=== PATIENT | female | born 2005 | race Two or more races ===

== ENCOUNTER 2025-04-14 14:39 | Emergency (ER) | payer MEDICAID, SELFPAY ==
[2025-04-14 14:40] VITALS: PULSE 112; RESP 18; O2SAT 96; BMI 17.2
[2025-04-14 14:49] VITALS: BP 106/72; PULSE 119; RESP 19; TEMP 36.4; O2SAT 96; BMI 18.7
--- NOTE | 2025-04-14 15:06 | PD.EDRME ---
Rapid Medical Screening Exam RME Arrival date/time: 04/14/25 14:39 20-year-old female with no known medical history presents to the emergency room with a chief complaint of suicidal ideation and depression. Patient states she does not have a plan for suicide but she has been having SI since her grandmother and she was forced to live with her mother. I have greeted and performed a focused initial assessment of this patient. A comprehensive ED assessment and evaluation of the patient, analysis of all test results, and completion of the medical decision making process will be conducted by additional ED providers. Chief Complaint: Depression Time Seen by Provider: 04/14/25 14:47 Vital signs: Vital Signs Temperature 97.5 F 04/14/25 14:49 Pulse Rate 119 H 04/14/25 14:49 Respiratory Rate 19 04/14/25 14:49 Blood Pressure 106/72 04/14/25 14:49 Pulse Oximetry (%) 96 04/14/25 14:49 Oxygen Delivery Method Room Air 04/14/25 14:49 Vital signs reviewed by provider: Yes
[2025-04-14 15:33] LABS: Basophils # (Auto) 0.1 Thou/mm3 (0.0-0.2); Basophils % (Auto) 1 % (0-2.5); Eosinophils % (Auto) 0 % (0-10); Immature Granulocytes % (Auto) 0 % (0-0); Immature Granulocytes Auto 0.02 Thou/mm3 (0.00-0.00); Lymphocytes # (Auto) 2.9 Thou/mm3 (1.0-4.8); Lymphocytes % (Auto) 29 % (10-50); Mean Corpuscular Hemoglobin 28.2 pg (25.0-35.0); Mean Corpuscular Volume 81 fL (80-100); Monocytes # (Auto) 0.6 Thou/mm3 (0.0-0.8); Monocytes % (Auto) 6 % (0-12); Neutrophils # (Auto) 6.3 Thou/mm3 (1.8-7.7); Neutrophils % (Auto) 64 % (37-80); Nucleated Red Blood Cell % 0 /100 WBC (0); Platelet Count 381 Thou/mm3 (140-440); RDW Standard Deviation 42.6 fL (36.4-46.3); Red Blood Count 4.97 Miln/mm3 (4.00-5.20)
[2025-04-14 15:52] LABS: Alanine Aminotransferase 15 U/L (10-49); Albumin/Globulin Ratio 1.4 (1.2-2.2); Alkaline Phosphatase 101 U/L (46-116); Anion Gap 16 (7-16); Aspartate Amino Transferase 21 U/L (0-34); BUN/Creatinine Ratio 6 Ratio (12-20); Bilirubin,Total 0.6 mg/dL (0.3-1.2); Blood Urea Nitrogen < 5 mg/dL (9-23); Calcium 9.1 mg/dL (8.3-10.6); Calcium (Corrected) 9.1 mg/dL (8.5-10.1); Carbon Dioxide 22.4 mMol/L (20.0-31.0); Chloride 105 mMol/L (98-107); Creatinine (Component) 0.8 mg/dL (0.6-1.3); Estimated Creatinine Clearance 86.8 mL/min (>60); Globulin 3.5 gm/dL (2.3-3.5); Glucose 104 mg/dL (74-106); Osmolality,Calculated 282 (275-295); Potassium 3.6 mMol/L (3.4-5.1); Sodium 143 mMol/L (136-145); Total Protein 8.5 gm/dL (5.7-8.2); eGFR > 60 See Note
--- NOTE | 2025-04-14 16:16 | EDNOTE_ITS ---
ED Psych RME/HPI General Chief Complaint: Depression Stated Complaint: FOUND BY PPD- SUICIDAL THOUGHTS, NO PLAN. Time Seen by Provider: 04/14/25 14:47 Arrival date/time: 04/14/25 14:39 RME / HPI RME / HPI Narrative: 20-year-old female with history of depression in the past currently not on medication for more than 2 years presents to the emergency room with a chief complaint of suicidal ideation and depression. Patient states she does have a plan for suicide SI since her grandmother and she was forced to live with her mother. She plan of cutting herself to hurt herself. Denies any homicidal ideation. Patient is also using alcohol and cocaine to numb herself. [place] not [place] in 5150 hold. On my initial evaluation patient is refusing to answer question and was crying. Information was gathered from her female pediatric social worker. Related Data Allergies Allergy/AdvReac Type Severity Reaction Status Date / Time No Known Allergies Allergy Verified 04/14/25 14:43 Review of Systems Review of Systems Narrative Review of Systems: Review of system reviewed and within normal limits except mentioned in HPI ED Exam Narrative Physical exam: VITAL SIGNS: Reviewed. GENERAL APPEARANCE: Alert and interactive, follows commands, no acute distress, anxious, crying, HEAD AND FACE: Non-traumatic. ENT: PERRL, pink conjunctivitis, eyelid no trauma, Mucous membrane moist. NECK: Supple, nontender, no nuchal rigidity. CHEST: No tenderness, no crepitus, no paradoxical movement, no retractions. LUNGS: Clear, well ventilated, symmetric, no rales, no wheezing, no ronchi, no stridor, good breath sounds bilaterally. HEART: Regular rate, regular rhythm, no murmur, no gallops. ABDOMEN: Soft, positive bowel sounds, nondistended, no guarding, nontender, no rebound, no masses, RECTAL: Deferred. GENITAL: Deferred. NEUROLOGICAL: Gross motor function intact sensory function intact, Appropriate for age. MUSCULOSKELETAL: low back nontender, full range of motion. EXTREMITIES: Nontender, full range of motion. SKIN: Color pink, dry, no rash, no lacerations, no abrasions, no contusions. LYMPHATICS: Deferred. Course Quality Measures none Orders Category Date Time Status In and Out Catheter Care 04/14/25 16:54 Completed Suicide precautions NOW Care 04/14/25 15:06 Active Alcohol, Blood Medical Stat Lab 04/14/25 15:20 Completed CBC Stat Lab 04/14/25 15:20 Completed CMP [Comprehensive Metabolic Panel] Stat Lab 04/14/25 15:20 Completed Drug Screen,Urine Stat Lab 04/14/25 16:50 Completed UA, C/S IF [Urinalysis, C/S if Indicated] Stat Lab 04/14/25 16:50 Completed Urine Culture Stat Lab 04/14/25 16:50 Received Vital Signs Vital signs: Vital Signs Temperature 97.5 F 04/14/25 14:49 Pulse Rate 119 H 04/14/25 14:49 Respiratory Rate 19 04/14/25 14:49 Blood Pressure 106/72 04/14/25 14:49 Pulse Oximetry (%) 96 04/14/25 14:49 Oxygen Delivery Method Room Air 04/14/25 14:49 Psych MDM Narrative MDM Narrative:: 20-year-old female with history of depression in the past currently not on medication for more than 2 years presents to the emergency room with a chief complaint of suicidal ideation and depression. Patient states she does have a plan for suicide SI since her grandmother and she was forced to live with her mother. She plan of cutting herself to hurt herself. Denies any homicidal ideation. Patient is also using alcohol and cocaine to numb herself. She was [place] up [place] the police [place] the park but not placed in 5150 hold. On my initial evaluation patient is refusing to answer question and was crying. Information was gathered from her female pediatric social worker. Patient is medically cleared for crisis intervention Patient was accepted and transferred to [facility] Patient data External records reviewed:: None Clinical information provided by:: patient Social determinants that could affect healthcare access:: mental health Patient has the following chronic illnesses:: Depression How is presenting disease/condition affected by chronic disease/condition?: exacerbated by Evaluation data The following diagnostics were reviewed and interpreted by me:: lab results Lab and/or radiology exams considered but not ordered:: None Interpretation Summary: CBC came back unremarkable CMP unremarkable urinalysis + UTI. Drug test positive for cocaine, marijuana, and alcohol level of 192 Medications / Prescriptions Medications or Prescriptions considered but not ordered:: None Medication administrations:: Keflex Consultations Consultation(s) initiated? (list below): No Diagnosis Psych Differential Diagnosis: acute psychosis and suicidal ideation Most likely diagnosis given after review of the tests above:: UTI, depression, suicidal ideation Admission Indicated Admission indicated?: indicated Admission Request Was there a request for admission?: Yes Admission Attestation Admission request attestation: Transferred to mental facility Disposition Plan Disposition Plan: Transfer Discharge Plan Plan Patient Disposition: [facility] Prescriptions/Referrals Referrals: Marian Lewis PA-C [Primary Care Provider] - In 1 week Problem List Clinical Impression: Suicidal ideation, Depression, UTI (urinary tract infection) Patient/Caregiver Discharge Instructions Print Language: Cymraes Stand Alone Forms: Gila Award Info., Patient Portal Info Letter
[2025-04-14 16:52] VITALS: BP 101/66; PULSE 77; RESP 16; TEMP 36.8; O2SAT 98
[2025-04-14 16:54] LABS: Collection Type, Urine Clean Catch
[2025-04-14 17:04] LABS: Bacteria,Urine 2+; Bilirubin,Urine Negative (Negative); Blood,Urine Trace (Negative); Color,Urine Yellow (Lt Yel-Yel); Glucose, Urine Negative (Negative); Hyaline Casts,Urine < 1 /hpf (0-1); Ketones,Urine Trace (Negative); Leukocyte Esterase,Urine Positive (Negative); Nitrite,Urine Positive (Negative); Protein,Urine Trace (Neg - Trace); RBC,Urine 2 /hpf (0-3); Specific Gravity,Urine 1.014 (1.001-1.035); Squamous Epithelial Cell,Urine 2 /hpf (0-5); Urobilinogen,Urine Negative mg/dL (0.0-1.0); WBC,Urine 73 /hpf (0-5)
[2025-04-14 17:15] LABS: Amphetamine/Methamp Scrn,U Negative (Negative); Barbiturate Screen,Urine Negative (Negative); Benzodiazepines Screen,Urine Negative (Negative); Benzoylecgonine Screen, Ur Positive (Negative); Clarity,Urine Hazy (Clear/Hazy); Culture Indicated,Urine Yes; Fentanyl Screen,Urine Negative (Negative); Opiate Screen,Urine Negative (Negative); THC Screen,Urine Positive (Negative)
--- NOTE | 2025-04-14 17:28 | PC.CC ---
Patient is a 20 year-old female who presents to the hospital for suicidal ideations [facility] Officer voluntarily. ASW, Kerry made face to face contact with patient introduced self, role, and reason for visit. Patient presents as alert and oriented to self, location, and situation. ASW disclosed limits of confidentiality as well. At bedside was patient?s mother, Kendra Luna whom patient provided verbal consent to remain in the room during assessment. Patient made appropriate eye contact with this resume writer. Patient?s mood appeared to be depressed as she was tearful throughout assessment had a flat affect and was disinhibited; patient had good insight and judgement. Patient?s thought process was linear and organized. No signs of delusions, paranoid or V/h. Patient reports she has been having suicidal ideation for 4 months, but have progressively gotten worse. Patient reports she has no plan other than cutting herself to feel pain. Patient showed this resume writer superficial cuts she has on her legs. Patient disclosed she uses cocaine to numb her depression such as sadness. Today patient reports she was upset and left her home this is when she was found by [place] [employer] Developer at [facility] and brought to the hospital voluntarily as her family called police due to concerns of her emotional state. Patient expressed that she feels she might be having symptoms related to post- depression. Patient stated, ?I am not able to oliva with my baby and show emotion towards him.? ? Patient reports she has a history of depression; however, no formal diagnosis. Patient was taking antidepressant prescribed by her primary provider two years ago, but stopped taking them as she was better. Patient has never been on a 5150-hold and has no past suicide attempts. Patient reports she has been having auditory hallucinations. The patient stated, ?Voices are telling go do this your pain is going to go away just take your life.? At the time of encounter the patient is denying suicidal and homicidal ideations, visual and auditory hallucinations. Patient stated, ?I need help.? ASW explored what she meant by expressing that she needed help. Patient reports she feels she needs help because she is depressed and using substances to numb her emotions. Per patient?s mother Kendra patient has been exhibiting signs of depression. Mother expressed concern for the patient?s mental health. Mother has attempted to get patient connect to outpatient mental health but patient has failed treatment and attend appointments. Upon clinical consultation with SHARED SERVICES REPRESENTATIVE, Daniella Norton patient will be placed on a 5150-hold for Danger to Self. Patient was provided with advisement of 5150-hold and process. Per patient she has made arrangement with her mother, Kendra and father, Khari Luna to care for her minor son. Patient?s mother who is at bedside was able to confirm this information of arrangements being made therefore no warranted CWS SCAR report at this time. ? ASW provided update of 5150-hold and discharge plan to [facility] to Dr. Parker, PATEL Mercedes, aviation boatswain's mate Georgie, and bedside RN Chris. ASW to send referral to [facility] via [employer].
[2025-04-14 18:04] VITALS: BP 105/73; PULSE 86; RESP 16; TEMP 36.7; O2SAT 100
--- NOTE | 2025-04-14 18:07 | PC.ADMIT ---
Patient has been accepted to [facility] by Psychiatrist, Dr. Dunlap, room 413B. Sheryl was staff that provided accepting information. ASW provided patient and mother who is at bedside with accepting facility information. Patient was receptive and thankful. ASW provided update of accepting facility to Dr. Parker, Sacha Mercedes, sound mixer Georgie, and bedside RN Claus. ASW to arrange transportation.
--- NOTE | 2025-04-14 18:32 | PC.NURSE ---
report given to Rocio GOLD from [facility] via telephone ([phone])
[2025-04-14] MEDS: cephALEXin 250 MG CAPSULE 500 MG PO (19:52)
== END 2025-04-14 19:58 ==
PROVIDERS: Nurse Practitioner Family; Emergency Provider Family Medicine; PCP Physician Assistant
DX: R45.851 Suicidal ideations (principal); F32.A Depression, unspecified; N39.0 Urinary tract infection, site not specified; Z75.1 Person awaiting admission to adequate facility elsewhere
CPT/HCPCS: 51701; 36415; 80053; 80307; 80320; 81001; 85025; 87077; 87086; 87186; 90839; 96127; 99285; A9270; G0480

== ENCOUNTER 2025-07-03 20:17 | Emergency (ER) | payer MEDICAID, SELFPAY ==
[2025-07-03 20:18] VITALS: BP 114/80; PULSE 60; PULSE 75; RESP 18; RESP 22; TEMP 36.7; O2SAT 96; O2SAT 99
[2025-07-03 21:24] LABS: Collection Type, Urine Clean Catch
--- NOTE | 2025-07-03 21:25 | XR_ITS ---
Examination: Abdomen sonogram, Limited Date and time of exam: July 03, 2025 2150 hours INDICATIONS: Right upper abdominal pain beginning one week ago Technique: Real-time sam scale transabdominal sonographic images of the upper abdomen obtained. Findings: Multiple gallstones Normal gallbladder wall Normal common bile duct 0.4 cm Pancreas 2.4 cm Liver 15.7 cm fatty infiltration Normal hepatopedal portal venous flow Patent IVC IMPRESSION: Cholelithiasis, negative for cholecystitis Normal common bile duct
--- NOTE | 2025-07-03 21:27 | EDRME_ITS ---
Rapid Medical Screening Exam [facility] Arrival date/time: 07/03/25 20:17 CC: Epigastric right upper quadrant abdominal pain HPI ongoing for 1 week progressive increase in severity denies nausea vomiting and diarrhea, no OTC medicines taken. Denies prior history of similar events. Past medical history includes currency on immunizations 1 admission for pyelonephritis in the past has a potential for being is sexually active. Chief Complaint: Abdominal Pain Vital signs: Vital Signs Temperature 98.0 F 07/03/25 20:18 Pulse Rate 60 07/03/25 20:18 Respiratory Rate 18 07/03/25 20:18 Blood Pressure 114/80 07/03/25 20:18 Pulse Oximetry (%) 96 07/03/25 20:18 Oxygen Delivery Method Room Air 07/03/25 20:18
[2025-07-03 21:36] LABS: Amphetamine/Methamp Scrn,U Negative (Negative); Barbiturate Screen,Urine Negative (Negative); Benzodiazepines Screen,Urine Negative (Negative); Benzoylecgonine Screen, Ur Negative (Negative); Fentanyl Screen,Urine Negative (Negative); Opiate Screen,Urine Negative (Negative); THC Screen,Urine Negative (Negative)
[2025-07-03 21:38] LABS: Amorphous Crystals,Urine Present (Absent); Bilirubin,Urine Negative (Negative); Blood,Urine Negative (Negative); Clarity,Urine Turbid (Clear/Hazy); Color,Urine Yellow (Lt Yel-Yel); Culture Indicated,Urine Not Indicated; Glucose, Urine Negative (Negative); Ketones,Urine Negative (Negative); Leukocyte Esterase,Urine Negative (Negative); Nitrite,Urine Negative (Negative); PH,Urine 6.0 (5.0-7.0); Protein,Urine Negative (Neg - Trace); RBC,Urine < 1 /hpf (0-3); Specific Gravity,Urine 1.031 (1.001-1.035); Squamous Epithelial Cell,Urine 19 /hpf (0-5); Urobilinogen,Urine Negative mg/dL (0.0-1.0); WBC,Urine 1 /hpf (0-5)
[2025-07-03 21:49] LABS: Basophils # (Auto) 0.0 Thou/mm3 (0.0-0.2); Basophils % (Auto) 1 % (0-2.5); Eosinophils # (Auto) 0.1 Thou/mm3 (0.0-0.5); Eosinophils % (Auto) 1 % (0-10); Hematocrit 36.1 % (36.0-46.0); Hemoglobin 12.0 g/dL (12.0-16.0); Immature Granulocytes Auto 0.06 Thou/mm3 (0.00-0.00); Lymphocytes # (Auto) 2.6 Thou/mm3 (1.0-4.8); Lymphocytes % (Auto) 31 % (10-50); Mean Corpuscular HGB Conc 33.2 g/dl (31.0-37.0); Mean Corpuscular Hemoglobin 28.8 pg (25.0-35.0); Mean Corpuscular Volume 87 fL (80-100); Monocytes # (Auto) 0.8 Thou/mm3 (0.0-0.8); Monocytes % (Auto) 9 % (0-12); Neutrophils # (Auto) 4.9 Thou/mm3 (1.8-7.7); Neutrophils % (Auto) 58 % (37-80); Nucleated Red Blood Cell # 0.00 Thou/mm3 (0.00-0.00); Nucleated Red Blood Cell % 0 /100 WBC (0); Platelet Count 352 Thou/mm3 (140-440); RDW Standard Deviation 51.6 fL (36.4-46.3); Red Blood Count 4.17 Miln/mm3 (4.00-5.20); White Blood Count 8.4 Thou/mm3 (3.6-11.0)
[2025-07-03 22:04] LABS: Alanine Aminotransferase 16 U/L (10-49); Albumin, Serum 4.5 gm/dL (3.5-5.0); Albumin/Globulin Ratio 1.6 (1.2-2.2); Alkaline Phosphatase 96 U/L (46-116); Anion Gap 9 (7-16); Aspartate Amino Transferase 26 U/L (0-34); BUN/Creatinine Ratio 15 Ratio (12-20); Bilirubin,Total 0.3 mg/dL (0.3-1.2); Blood Urea Nitrogen 12 mg/dL (9-23); Calcium 9.3 mg/dL (8.3-10.6); Calcium (Corrected) 9.3 mg/dL (8.5-10.1); Carbon Dioxide 25.4 mMol/L (20.0-31.0); Chloride 105 mMol/L (98-107); Creatinine (Component) 0.8 mg/dL (0.6-1.3); Globulin 2.8 gm/dL (2.3-3.5); Glucose 110 mg/dL (74-106); Lipase 45 U/L (12-53); Osmolality,Calculated 278 (275-295); Potassium 3.8 mMol/L (3.4-5.1); Sodium 139 mMol/L (136-145); Total Protein 7.3 gm/dL (5.7-8.2); eGFR > 60 See Note
[2025-07-03 23:16] LABS: HCG Qualitative,Urine Negative
--- NOTE | 2025-07-04 01:27 | EDNOTE_ITS ---
ED Abdominal Pain RME/HPI General Chief Complaint: Abdominal Pain Stated complaint: ABD PAIN Arrival date/time: 07/03/25 20:17 RME / HPI RME / HPI narrative: 07/03/25 20:17 CC: Epigastric right upper quadrant abdominal pain HPI ongoing for 1 week progressive increase in severity denies nausea vomiting and diarrhea, no OTC medicines taken. Denies prior history of similar events. Past medical history includes currency on immunizations 1 admission for pyelonephritis in the past has a potential for being is sexually active. Dr. Stallings?s Main ED Evaluation: 20yo female VLADIMIRA from local rehab, has been clean and sober from cocaine for the last 2 weeks presenting with generalized lower abdominal pain for the last 1 week. Patient notes having vaginal discharge and recent sexual activity. Denies urinary frequency, urgency, dysuria, fever, chills, vomiting, and diarrhea. She is having regular bowel movements. PMH includes substance abuse. PSH: no previous abdominal surgeries. Related Data Previous Rx's ?Medication ?Instructions ?Recorded metronidazole 500 mg tablet 500 mg PO Q8H 7 days #21 t abs 07/04/25 naproxen 250 mg tablet 250 mg PO BID 5 days #10 tab s 07/04/25 Allergies Allergy/AdvReac Type Severity Reaction Status Date / Time No Known Allergies Allergy Verified 04/14/25 14:43 Review of Systems Review of Systems Systems Reviewed: All systems reviewed, normal except as documented Past Medical History Past Medical History NEUROLOGIC: Negative Neurological Disorders CARDIAC: Negative Cardiac Disorders or Congestive Heart Failure RESPIRATORY: Negative Chronic Obstructive Pulmonary Disease (COPD) or Asthma GASTROINTESTINAL: Negative Gastrointestinal Disorders GENITOURINARY: Negative Genitourinary Disorders or Renal Disease REPRODUCTIVE: Negative Pelvic Inflammatory Disease or Previous Pregnancies MUSCULOSKELETAL: Negative Musculoskeletal Disorders ENDOCRINE: Negative Endocrine Disorders, Diabetes Mellitus Type 1 or Diabetes Mellitus Type 2 HEMATOLOGIC: Negative Blood Disorders or Sickle Cell Disease PSYCHO/SOCIAL: Positive Depression and Anxiety OTHER HISTORY: Negative Autoimmune Disease, Blood Transfusions, Anesthesia Reactions, MRSA, VRSA, Vancomycin-Resistant Enterococci or Cancer Family History FAMILY HISTORY: Positive Family Cardiac Disorders; Negative Family Cancer, Family Surgery or Family Anesthesia Reaction Surgical History SURGICAL: Negative Section Social History SMOKING STATUS: Never smoker ED Exam Narrative Physical exam: GENERAL APPEARANCE: alert and oriented x 4, well-developed, well-nourished, nontoxic, no acute distress VITALS: All vitals were reviewed and the pulse ox is 96% on room air, which is normal according to my interpretation. HEENT: Normocephalic, atraumatic; pupils equal, round, reactive to light; EOMI; mucous membranes pink, moist; oropharynx clear NECK: Supple LUNGS: CTABL; no wheezes, no rales, no rhonchi HEART: Regular rate, regular rhythm; normal S1, S2; no murmurs ABDOMEN: non distended; soft, diffuse mild lower abdominal tenderness PELVIC: female locksmith present; copious yellow-green within vaginal wall, no CMT, no adenexal mass EXTREMITIES: atraumatic; no edema NEUROLOGIC: awake; alert and oriented x4; cranial nerves II-XII grossly intact; no focal sensory or motor deficits PSYCHIATRIC: appropriate mood and affect SKIN: warm, dry, normal color; no rashes Course Quality Measures none Orders Category Date Time Status US gall bladder Stat Exams 07/03/25 21:25 Completed Bacterial Vaginal Panel Urgent Lab 07/04/25 02:00 Received CBC Stat Lab 07/03/25 21:38 Completed CMP [Comprehensive Metabolic Panel] Stat Lab 07/03/25 21:38 Completed Chlamydia/GC/TV - PCR Routine Lab 07/04/25 02:10 Received Drug Screen,Urine Stat Lab 07/03/25 21:18 Completed HCG Qualitative,Urine Stat Lab 07/03/25 21:18 Completed Lipase Stat Lab 07/03/25 21:38 Completed UA, C/S IF [Urinalysis, C/S if Indicated] Stat Lab 07/03/25 21:18 Completed Wet Prep Stat Lab 07/04/25 02:00 Received Azithromycin Po [Zithromax PO] Med 07/04/25 02:14 Discontinued 1,000 mg PO X1 ONE cefTRIAXone [Rocephin] 500 mg Med 07/04/25 02:15 Discontinued Lidocaine 1% 20 ml [Xylocaine 1% 20 ML] 1 ml IM X1 Vital Signs Vital signs: Vital Signs Temperature 98.0 F 07/03/25 20:18 Pulse Rate 60 07/03/25 20:18 Respiratory Rate 18 07/03/25 20:18 Blood Pressure 114/80 07/03/25 20:18 Pulse Oximetry (%) 96 07/03/25 20:18 Oxygen Delivery Method Room Air 07/03/25 20:18 Abdominal Pain MDM MDM Narrative MDM Narrative:: Scribe Attestation: 07/04/25 - Cordelia Tabares am scribing for and in the presence of Dr. Stallings. 20yo female BIBA from local rehab, has been clean and sober from cocaine for the last 2 weeks presenting with generalized lower abdominal pain for the last 1 week. Patient notes having vaginal discharge and recent sexual activity. Please see PE findings. Lab markers demonstrate normal WBC count, normal chemistries, UA unremarkable, HCG negative, toxicology negative. Gallbladder ultrasound was performed and showed cholelithiasis without evidence of cholecystitis. A brief pelvic exam will be conducted in order to obtain samples. Patient will be treated with empiric antibiotics for potential STD pending additional lab data. Patient data External records reviewed:: [facility] previous records (Per chart review, patient was seen here on 04/14/25 for depression.) Clinical information provided by:: patient Social determinants that could affect healthcare access:: substance use Patient has the following chronic illnesses:: anxiety, depression How is presenting disease/condition affected by chronic disease/condition?: unef fected by Evaluation data The following diagnostics were reviewed and interpreted by me:: lab results and radiology exam(s) Lab and/or radiology exams considered but not ordered:: none Interpretation Summary: [place] [facility] Report Signed Patient: KAMI VENTURA Record#: [id number] Birthdate: 2005 Age/Sex: 20 / F Location: [facility] Attending Dr: Ordering Physician: Seven Marcelo NP Date of Service: 07/03/25 Procedure(s): US gall bladder Accession Number(s): [id number] cc: Seven Marcelo NP; Chico Calloway MD; Marian Lewis PA-C~ Examination: Abdomen sonogram, Limited Date and time of exam: July 03, 2025 2150 hours INDICATIONS: Right upper abdominal pain beginning one week ago Technique: Real-time sam scale transabdominal sonographic images of the upper abdomen obtained. Findings: Multiple gallstones Normal gallbladder wall Normal common bile duct 0.4 cm Pancreas 2.4 cm Liver 15.7 cm fatty infiltration Normal hepatopedal portal venous flow Patent IVC IMPRESSION: Cholelithiasis, negative for cholecystitis Normal common bile duct Dictated By: Chico Calloway MD Signed By: <Electronically signed by Chico Calloway MD in OV> 07/03/25 2236 Medications / Prescriptions Medications or Prescriptions considered but not ordered:: none Medication administrations:: Medication Administration History Discontinued Medications Azithromycin (Azithromycin 250 Mg Tablet) 1,000 mg PO X1 ONE Stop: 07/04/25 02:15 Last Admin: 07/04/25 02:41 Dose: 1,000 mg Documented By: SF Ceftriaxone Sodium 500 mg/ (Lidocaine HCl 1 ml) 0 mg IM X1 ONE Stop: 07/04/25 02:16 Last Admin: 07/04/25 02:42 Dose: 500 mg Documented By: KEELY see above Consultations Consultation(s) initiated? (list below): No Diagnosis Differential diagnosis abdominal pain: constipation and other (vaginitis, STD, cholelithiasis, cholecystitis) Most likely diagnosis given after review of the tests above:: NSV (nonspecific vaginitis) Admission Indicated Admission indicated?: not indicated Admission Request Was there a request for admission?: No Disposition Plan Disposition Plan: Discharge Discharge Attestation Discharge Attestation: The patient and all family members were given an opportunity to ask questions and understood the discharge instructions. Discharge instructions specifically effects, indications for sooner follow up or return to the emergency department, and the expected course of current diagnosis. Patient condition: Stable Discharge Plan Plan Patient Disposition: HOME (Self Care) Discharge Disposition comment: Stable Prescriptions/Referrals Prescriptions/Med Rec: New metronidazole 500 mg tablet 500 mg PO Q8H 7 Days Qty: 21 0RF naproxen 250 mg tablet 250 mg PO BID 5 Days Qty: 10 0RF Referrals: Marian Lewis PA-C [Primary Care Provider] - In 1 week Problem List Clinical Impression: NSV (nonspecific vaginitis) Patient/Caregiver Discharge Instructions Discharge Activity: activity as tolerated Education Materials: Preventing Vaginitis Additional Instructions: Increase fluids/medication as directed/follow-up with AGRICULTURAL EQUIPMENT SALES ENGINEER physician within 2 to 3 weeks as needed return if worsening Print Language: [place] Citizen Stand Alone Forms: Gila Award Info., Patient Portal Info Letter
[2025-07-04] MEDS: AZITHROMYCIN 250 MG TABLET 1000 MG PO (02:41)
[2025-07-04] MEDS: cefTRIAXone 500 MG, LIDOCAINE 1% 20 ML 1 ML IM (02:42)
[2025-07-04 11:00] LABS: BVAG Candida Negative (Negative); Bacterial Vaginosis Markers Positive (Negative); Candida glabrata Negative (Negative); Candida krusei PCR Negative (Negative); Trichomonas Negative (Negative)
== END 2025-07-04 02:53 | disposition home or self-care (01) ==
PROVIDERS: Registered Nurse General Practice; Emergency Provider Emergency Medicine; PCP Physician Assistant
DX: N76.0 Acute vaginitis (principal); K80.20 Calculus of gallbladder without cholecystitis without obstruction
CPT/HCPCS: 36415; 76705; 80053; 80307; 81001; 81025; 81514; 83690; 85025; 87210; 87491; 87591; 87661; 99283; J0696; J3490; A9270